=== PATIENT | male | born 1960 | race Caucasian/White ===

== ENCOUNTER 2018-03-13 10:33 | Observation (INO) | payer BC ==
[~2018-03-13] VITALS: Ht 172.7 cm; Wt 92.3 kg
[~2018-03-13 10:33] MED LIST changes: -ACET325 PO; -ASPI81CH PO; -ATOR40TA PO; -LISI20 PO; -LISI5 PO; -METO25 PO; -NITR.4SL SL; -OMEPRAZOLE MAGN20 MG PO
[2018-03-13] MEDS ORDERED: LISI20 PO (11:23)
[2018-03-15] MEDS ORDERED: LISI5 PO (13:55)
[2018-03-15] MEDS ORDERED: NITR.4SL SL (13:56)
[2018-03-15] MEDS ORDERED: ACET325 PO (13:58)
[2018-03-15] MEDS ORDERED: ASPI81CH PO (13:58)
[2018-03-15] MEDS ORDERED: ATOR40TA PO (14:02)
[2018-03-15] MEDS ORDERED: METO25 PO (14:02)
[2018-03-15] MEDS ORDERED: OMEPRAZOLE MAGN20 MG PO (14:04)
== END 2018-03-15 15:59 | disposition home or self-care (01) ==
LOC: ER 10:33 → MEDS 10:34 → ENPENDDIS 03-15 13:19 → MEDS 03-15 15:59
DX: R07.9 Chest pain, unspecified (principal); I10 Essential (primary) hypertension; E78.5 Hyperlipidemia, unspecified; R94.39 Abnormal result of other cardiovascular function study; F17.210 Nicotine dependence, cigarettes, uncomplicated
CPT/HCPCS: 36415; 78452; 84484; 93005; 93010; 93017; 94664; 94760; 98960; 99285-25; 99407; A9500; G0378; J2785

== ENCOUNTER → 2018-03-13 | Outpatient (CLI) | payer BC ==
[~2018-03-13] MED LIST: ACET325 PO; ASPI81CH PO; ATOR40TA PO; IBUHYD PO; LISI20 PO; LISI5 PO; METO25 PO; NITR.4SL SL; OMEPRAZOLE MAGN20 MG PO; PENVK500 PO
[2018-03-13 08:59] LABS: BASOPHILS ABSOLUTE AUTO 0.03 K/mm3 (0.00-0.23); BASOPHILS PERCENT AUTO 0 % (0-2); EOSINOPHILS PERCENT AUTO 1 % (0-6); Hematocrit 42.7 % (37.0-53.0); Hemoglobin 15.1 g/dL (13.5-17.5); IMMATURE GRAN ABSOLUTE AUTO 0.05 K/mm3 (0.00-0.10); IMMATURE GRAN PERCENT AUTO 1 % (0-1); LYMPHOCYTES ABSOLUTE AUTO 1.91 K/mm3 (0.84-5.20); LYMPHOCYTES PERCENT AUTO 19 % (21-46); MONOCYTES ABSOLUTE AUTO 0.76 K/mm3 (0.16-1.47); MONOCYTES PERCENT AUTO 8 % (4-13); Mean Corpuscular HGB 33.3 pg (26.0-34.0); Mean Corpuscular HGB Conc 35.4 g/dL (31.5-36.5); Mean Corpuscular Volume 94 fL (80-100); Mean Platelet Volume 9.5 fL (9.1-12.4); NEUTROPHILS ABSOLUTE AUTO 7.21 K/mm3 (1.96-9.15); NEUTROPHILS PERCENT AUTO 72 % (41-73); Platelet Count 196 K/mm3 (150-400); RDW Standard Deviation 41.5 fL (35.1-46.3); Red Blood Cell Count 4.53 M/mm3 (4.30-5.90); White Blood Cell Count 10.06 K/mm3 (4.00-11.30)
[2018-03-13 09:10] LABS: Anion Gap 8 mmol/L (6-16); Blood Urea Nitrogen 11 mg/dL (8-24); Bun/Creatinine Ratio 11.8 (12.0-20.0); CO2, Blood 25 mmol/L (21-32); Chloride, Blood 104 mmol/L (98-108); Creatinine, Blood 0.93 mg/dL (0.60-1.20); Glomerular Filtration Rate >60 (60-); Glucose, Blood 95 mg/dL (70-99); Potassium, Blood 4.4 mmol/L (3.5-5.5); Sodium, Blood 137 mmol/L (136-145); Troponin I 0.029 ng/mL (0.000-0.040)
== END ==
LOC: LAB EV 08:52 → LAB SHORT 08:52
PROVIDERS: Physician Assistant Surgical
DX: R07.9 Chest pain, unspecified (principal)
CPT/HCPCS: 80048; 84484; 85025

== ENCOUNTER 2019-02-03 08:58 | Emergency (ER) | payer OTHER, SELFPAY ==
[~2019-02-03] VITALS: Ht 172.7 cm; Wt 81.7 kg
[~2019-02-03 08:58] MED LIST changes: +ACET325 PO; +ASPI81CH PO; +ATOR40TA PO; +LISI20 PO; +LISI5 PO; +METO25 PO; +NITR.4SL SL; +OMEPRAZOLE MAGN20 MG PO; +VARE1
[2019-02-03 10:17] LABS: BASOPHILS ABSOLUTE AUTO 0.02 K/mm3 (0.00-0.23); BASOPHILS PERCENT AUTO 0 % (0-2); EOSINOPHILS ABSOLUTE AUTO 0.07 K/mm3 (0.00-0.68); EOSINOPHILS PERCENT AUTO 1 % (0-6); Hematocrit 47.2 % (37.0-53.0); Hemoglobin 16.2 g/dL (13.5-17.5); IMMATURE GRAN ABSOLUTE AUTO 0.04 K/mm3 (0.00-0.10); IMMATURE GRAN PERCENT AUTO 1 % (0-1); LYMPHOCYTES ABSOLUTE AUTO 1.75 K/mm3 (0.84-5.20); LYMPHOCYTES PERCENT AUTO 21 % (21-46); MONOCYTES ABSOLUTE AUTO 0.72 K/mm3 (0.16-1.47); MONOCYTES PERCENT AUTO 9 % (4-13); Mean Corpuscular HGB 34.1 pg (26.0-34.0); Mean Corpuscular HGB Conc 34.3 g/dL (31.5-36.5); Mean Corpuscular Volume 99 fL (80-100); Mean Platelet Volume 9.2 fL (9.1-12.4); NEUTROPHILS ABSOLUTE AUTO 5.76 K/mm3 (1.96-9.15); NEUTROPHILS PERCENT AUTO 69 % (41-73); Platelet Count 154 K/mm3 (150-400); RDW Standard Deviation 44.4 fL (35.1-46.3); Red Blood Cell Count 4.75 M/mm3 (4.30-5.90); White Blood Cell Count 8.36 K/mm3 (4.00-11.30)
[2019-02-03 10:42] LABS: Alanine Aminotransfer (ALT/SGP 66 U/L (12-78); Albumin, Blood 3.5 g/dL (3.4-5.0); Albumin/Globulin Ratio 0.8 (0.8-1.8); Alk Phos 106 U/L (50-136); Anion Gap 7 mmol/L (6-16); Aspartate Aminotrans (AST/SGOT 60 U/L (12-37); Bilirubin, Total 0.6 mg/dL (0.1-1.0); Blood Urea Nitrogen 11 mg/dL (8-24); Bun/Creatinine Ratio 15.8 (12.0-20.0); CO2, Blood 26 mmol/L (21-32); Calcium, Blood 8.6 mg/dL (8.5-10.1); Chloride, Blood 108 mmol/L (98-108); Globulin, Blood 4.4 g/dL (2.2-4.0); Glomerular Filtration Rate >60 (60-); Glucose, Blood 88 mg/dL (70-99); Sodium, Blood 141 mmol/L (136-145); Total Protein, Blood 7.9 g/dL (6.4-8.2); Troponin I <0.015 ng/mL (0.000-0.040)
[2019-03-06] MEDS ORDERED: METO25ER PO (14:15)
[2019-03-06] MEDS ORDERED: PANT40 PO (14:17)
== END 2019-02-03 11:00 | disposition home or self-care (01) ==
LOC: ER 08:58
PROVIDERS: Physician Assistant
DX: R07.89 Other chest pain (principal); Z79.899 Other long term (current) drug therapy; Z79.82 Long term (current) use of aspirin; I10 Essential (primary) hypertension; E78.5 Hyperlipidemia, unspecified; F17.200 Nicotine dependence, unspecified, uncomplicated
CPT/HCPCS: 36415; 71046; 80053; 83690; 84484; 85025; 93005; 93010; 99285-25

== ENCOUNTER 2019-03-07 08:17 | Day surgery (SDC) | payer OTHER ==
[~2019-03-07] VITALS: Ht 172.7 cm; Wt 85.9 kg
[~2019-03-07 08:17] MED LIST changes: +METO25ER PO; +PANT40 PO
--- NOTE | 2019-03-07 12:13 | NUR ---
DISCHARGE PT. DISCHARGE INSTRUCTIONS REVIEWED. PT. VSS AT THIS TIME. STEADY ON FEET TO GET SELF DRESSED. PT CALLED FAMILY MEMBER FOR RIDE HOME. RADIAL SITE CARE REVIEWED, NO FURTHER QUESTIONS FROM PT. PT. DENIES ANY PAIN OR DISCOMFORT AT THIS TIME. CLOTH DOT PLACED OVER SITE. ACCESS SITE WNL, NO BRUISING, BLEEDING, SWELLING NOTED. PT. LEAVING WITH ARMBOARD IN PLACE. IV REMVOED; CATHETER INTACT.
== END 2019-03-07 12:30 | disposition home or self-care (01) ==
LOC: MHTC 08:17
DX: R07.89 Other chest pain (principal); I10 Essential (primary) hypertension; J44.9 Chronic obstructive pulmonary disease, unspecified; F17.210 Nicotine dependence, cigarettes, uncomplicated; E78.5 Hyperlipidemia, unspecified; Z79.899 Other long term (current) drug therapy; Z79.82 Long term (current) use of aspirin
CPT/HCPCS: 93454; 93458; 99152; C1769; C1894; J0690; J1644; J2250; J3010; J7030; Q9967

== ENCOUNTER → 2019-06-18 | Outpatient (CLI) | payer OTHER ==
[2019-06-18 09:31] LABS: BASOPHILS ABSOLUTE AUTO 0.03 K/mm3 (0.00-0.23); BASOPHILS PERCENT AUTO 0 % (0-2); EOSINOPHILS ABSOLUTE AUTO 0.05 K/mm3 (0.00-0.68); EOSINOPHILS PERCENT AUTO 0 % (0-6); Hematocrit 42.8 % (37.0-53.0); Hemoglobin 15.2 g/dL (13.5-17.5); IMMATURE GRAN ABSOLUTE AUTO 0.05 K/mm3 (0.00-0.10); IMMATURE GRAN PERCENT AUTO 0 % (0-1); LYMPHOCYTES PERCENT AUTO 13 % (21-46); MONOCYTES ABSOLUTE AUTO 0.87 K/mm3 (0.16-1.47); MONOCYTES PERCENT AUTO 7 % (4-13); Mean Corpuscular HGB 34.6 pg (26.0-34.0); Mean Corpuscular HGB Conc 35.5 g/dL (31.5-36.5); Mean Corpuscular Volume 98 fL (80-100); Mean Platelet Volume 10.1 fL (9.1-12.4); NEUTROPHILS ABSOLUTE AUTO 9.27 K/mm3 (1.96-9.15); NEUTROPHILS PERCENT AUTO 79 % (41-73); Platelet Count 145 K/mm3 (150-400); RDW Coefficient Variation 11.9 % (11.7-14.2); RDW Standard Deviation 42.7 fL (35.1-46.3); Red Blood Cell Count 4.39 M/mm3 (4.30-5.90); White Blood Cell Count 11.77 K/mm3 (4.00-11.30)
[2019-06-18 09:38] LABS: Anion Gap 8 mmol/L (6-16); Blood Urea Nitrogen 11 mg/dL (8-24); Bun/Creatinine Ratio 11.7 (12.0-20.0); Calcium, Blood 8.4 mg/dL (8.5-10.1); Chloride, Blood 103 mmol/L (98-108); Creatinine, Blood 0.94 mg/dL (0.60-1.20); Glomerular Filtration Rate >60 (60-); Glucose, Blood 109 mg/dL (70-99); Sodium, Blood 137 mmol/L (136-145)
[2019-06-18 10:05] LABS: CO2, Blood 26 mmol/L (21-32)
== END | disposition home or self-care (01) ==
LOC: LAB SHORT 09:14 → LAB EV 09:14
PROVIDERS: Physician Assistant Surgical
DX: R53.83 Other fatigue (principal)
CPT/HCPCS: 80048; 83690; 85025

== ENCOUNTER → 2019-12-23 | Outpatient (CLI) | payer OTHER ==
[2019-12-23 10:08] LABS: BASOPHILS ABSOLUTE AUTO 0.02 K/mm3 (0.00-0.23); BASOPHILS PERCENT AUTO 0 % (0-2); EOSINOPHILS ABSOLUTE AUTO 0.06 K/mm3 (0.00-0.68); EOSINOPHILS PERCENT AUTO 1 % (0-6); Hematocrit 47.1 % (37.0-53.0); IMMATURE GRAN ABSOLUTE AUTO 0.04 K/mm3 (0.00-0.10); IMMATURE GRAN PERCENT AUTO 0 % (0-1); LYMPHOCYTES ABSOLUTE AUTO 1.91 K/mm3 (0.84-5.20); LYMPHOCYTES PERCENT AUTO 19 % (21-46); MONOCYTES ABSOLUTE AUTO 0.86 K/mm3 (0.16-1.47); MONOCYTES PERCENT AUTO 8 % (4-13); Mean Corpuscular HGB 34.9 pg (26.0-34.0); Mean Corpuscular HGB Conc 36.1 g/dL (31.5-36.5); Mean Corpuscular Volume 97 fL (80-100); Mean Platelet Volume 10.2 fL (9.1-12.4); NEUTROPHILS ABSOLUTE AUTO 7.35 K/mm3 (1.96-9.15); NEUTROPHILS PERCENT AUTO 72 % (41-73); Platelet Count 174 K/mm3 (150-400); RDW Coefficient Variation 12.6 % (11.7-14.2); RDW Standard Deviation 45.4 fL (35.1-46.3); Red Blood Cell Count 4.87 M/mm3 (4.30-5.90); White Blood Cell Count 10.24 K/mm3 (4.00-11.30)
[2019-12-23 10:20] LABS: Alanine Aminotransfer (ALT/SGP 99 U/L (12-78); Albumin, Blood 3.5 g/dL (3.4-5.0); Albumin/Globulin Ratio 0.7 (0.8-1.8); Alk Phos 120 U/L (40-126); Anion Gap 6 mmol/L (6-16); Aspartate Aminotrans (AST/SGOT 92 U/L (12-37); Bilirubin, Total 0.9 mg/dL (0.1-1.0); Blood Urea Nitrogen 16 mg/dL (8-24); CO2, Blood 30 mmol/L (21-32); Calcium, Blood 8.4 mg/dL (8.5-10.1); Chloride, Blood 103 mmol/L (98-108); Creatinine, Blood 1.07 mg/dL (0.60-1.20); Globulin, Blood 4.8 g/dL (2.2-4.0); Glomerular Filtration Rate >60 (60-); Glucose, Blood 113 mg/dL (70-99); Potassium, Blood 4.3 mmol/L (3.5-5.5); Sodium, Blood 139 mmol/L (136-145); Total Protein, Blood 8.3 g/dL (6.4-8.2)
[2019-12-23 10:21] LABS: Troponin I <0.017 ng/mL (0.000-0.040)
== END ==
LOC: LAB SHORT 10:02 → LAB EV 10:02
PROVIDERS: Physician Assistant
DX: R07.9 Chest pain, unspecified (principal)
CPT/HCPCS: 80053; 83690; 84484; 85025; 85379

== ENCOUNTER 2020-12-15 13:20 | Observation (INO) | payer OTHER ==
[~2020-12-15] VITALS: Ht 172.7 cm; Wt 84.6 kg
--- NOTE | 2020-12-16 05:17 | NUR ---
SHIFT SUMMARY A/O, ABLE TO MAKE NEEDS KNOWN. COOPERATIVE WITH CARE. CALLS AND ANSWERS QUESTIONS APPROPRIATELY. NO C/O PAIN/DISCOMFORT. APPEARED TO REST MUCH OF THE NIGHT. TELE RUNNING SR IN 60s. HYPERTENSIVE THIS AM; APPEARS TO BE ON TREND WITH PREVIOUS PRESSURES. ALL OTHER VS WNL. NO ACUTE CHANGES NOTED. INDEPENDENT IN ROOM. BED IN LOWEST POSITION. CALL LIGHT AND BELONGINGS WITHIN REACH. CONTINUE WITH CURRENT PLAN OF CARE. REPORT TO ONCOMING RN.
[2020-12-16 06:12] LABS: CHOL/HDL RATIO 2.7; Cholesterol 180 mg/dL (50-200); HDL Cholesterol 66 mg/dL (>39); LDL/HDL RATIO 1.5; Low Density Lipoprotein Chol 98 mg/dL (0-110); Triglycerides 78 mg/dL (30-160); Troponin I <0.015 ng/mL (0.000-0.040); Very Low Density Lipoprot Chol 15 mg/dL (6-32)
[2020-12-16] MEDS ORDERED: ACET325 PO (11:23)
[2020-12-16] MEDS ORDERED: ALUM-MAG HYDROX30 ML PO (11:25)
[2020-12-16] MEDS ORDERED: TUMS500 MG PO (11:26)
[2020-12-16] MEDS ORDERED: Nicoderm Cq1 EAC1 TOP (11:26)
--- NOTE | 2020-12-16 12:39 | NUR ---
DISCHARGE SUMMARY PT A/O X4; PLEASANT AND COOPERATIVE WITH CARE. IND. IN THE ROOM. C/O EPIGASTRIC PAIN THIS AM THAT WAS RELIEVED BY GI COCKTAIL. NO OTHER COMPLAINTS. PT INSTRUCTED TO FOLLOW UP WITH [facility] IN ONE WEEK. EDUCATION PROVIDED TO PATIENT AND HE EXHIBITED UNDERSTANDING. IV DC'D WNL. DISCHARGED HOME.
--- NOTE | 2020-12-16 17:09 | NUR ---
ADMIT: 12/15/20 DISCHARGE: 12/15/20 DX: ACS, CP CC: [email or web address] AAKASH CALL: pt d/c prior to being able to meet with him (Per d/c note f/u with pcp 1 week) RESIDENCE: home with spouse CAREGIVER: Estela Luciano , Spouse / Partner, DX: continuouse chronic alcoholism, HTN, abdominal pain, DME: none CCM: none HOME HEALTH: none SUMMARY: Admit: 12/15/20 12/16/20-per chart review with Dr. Velez, pt is stable to be d/c home and follow up with PCP 1 week. -jerad
== END 2020-12-16 12:26 | disposition home or self-care (01) ==
LOC: ER 13:20 → ERHOLD 13:21 → MEDS 18:05 → ENPENDDIS 12-16 11:06 → MEDS 12-16 12:26
PROVIDERS: ADMIT Family Medicine
DX: R79.89 Other specified abnormal findings of blood chemistry (principal); R10.13 Epigastric pain; R07.9 Chest pain, unspecified; I10 Essential (primary) hypertension; E78.5 Hyperlipidemia, unspecified; F17.210 Nicotine dependence, cigarettes, uncomplicated; J44.9 Chronic obstructive pulmonary disease, unspecified
CPT/HCPCS: 36415; 80061; 83036; 84484; 93005; 93010; 99285-25; A9270; G0378

== ENCOUNTER → 2022-10-09 | Outpatient (CLI) | payer OTHER ==
[~2022-10-09] MED LIST changes: +ALUM-MAG HYDROX30 ML PO; +Nicoderm Cq1 EAC1 TOP; +TUMS500 MG PO
[2022-10-13 07:11] LABS: HCV LOG10 6.838 (.); HEPATITIS C QUANTITATION 6880000 IU/mL (.)
== END | disposition home or self-care (01) ==
LOC: LAB 17:11 → LAB SHORT 17:11
PROVIDERS: Physician Assistant Medical
DX: B18.2 Chronic viral hepatitis C (principal)
CPT/HCPCS: 36415

== ENCOUNTER 2023-04-08 21:06 | Emergency (ER) | payer OTHER ==
[~2023-04-08] VITALS: Ht 175.3 cm; Wt 93.0 kg
[2023-04-08] MEDS ORDERED: AMLODIPINE BESY10 MG PO (21:14)
[2023-04-08 21:39] LABS: BASOPHILS ABSOLUTE AUTO 0.03 K/mm3 (0.00-0.23); BASOPHILS PERCENT AUTO 0 % (0-2); EOSINOPHILS ABSOLUTE AUTO 0.17 K/mm3 (0.00-0.68); EOSINOPHILS PERCENT AUTO 2 % (0-6); Hematocrit 41.3 % (37.0-53.0); Hemoglobin 15.2 g/dL (13.5-17.5); IMMATURE GRAN ABSOLUTE AUTO 0.05 K/mm3 (0.00-0.10); IMMATURE GRAN PERCENT AUTO 1 % (0-1); LYMPHOCYTES ABSOLUTE AUTO 3.61 K/mm3 (0.84-5.20); LYMPHOCYTES PERCENT AUTO 44 % (21-46); MONOCYTES PERCENT AUTO 9 % (4-13); Mean Corpuscular HGB 34.2 pg (26.0-34.0); Mean Corpuscular HGB Conc 36.8 g/dL (31.5-36.5); Mean Corpuscular Volume 93 fL (80-100); Mean Platelet Volume 9.5 fL (9.1-12.4); NEUTROPHILS ABSOLUTE AUTO 3.68 K/mm3 (1.96-9.15); NEUTROPHILS PERCENT AUTO 45 % (41-73); Platelet Count 168 K/mm3 (150-400); RDW Coefficient Variation 13.5 % (11.7-14.2); RDW Standard Deviation 46.2 fL (35.1-46.3); Red Blood Cell Count 4.45 M/mm3 (4.30-5.90); White Blood Cell Count 8.24 K/mm3 (4.00-11.30)
[2023-04-08 21:45] VITALS: BP 126/78
[2023-04-08 21:57] LABS: Albumin, Blood 3.4 g/dL (3.4-5.0); Albumin/Globulin Ratio 0.8 (0.8-1.8); Bilirubin, Total 0.5 mg/dL (0.1-1.0); Bun/Creatinine Ratio 14.4 (12.0-20.0); Calcium, Blood 8.9 mg/dL (8.5-10.1); Creatinine, Blood 0.84 mg/dL (0.60-1.20); Globulin, Blood 4.3 g/dL (2.2-4.0); Potassium, Blood 3.9 mmol/L (3.5-5.5); Total Protein, Blood 7.7 g/dL (6.4-8.2)
[2023-04-09] MEDS ORDERED: ALPR1 PO (00:01)
[2023-04-12] MEDS ORDERED: Xanax1 MG PO (14:06)
== END 2023-04-09 00:23 | disposition home or self-care (01) ==
LOC: ER 21:06
PROVIDERS: Physician Assistant
DX: F41.9 Anxiety disorder, unspecified (principal); R60.0 Localized edema; Z79.899 Other long term (current) drug therapy; I10 Essential (primary) hypertension; E78.5 Hyperlipidemia, unspecified; F17.200 Nicotine dependence, unspecified, uncomplicated
CPT/HCPCS: 71046; 80053; 83880; 84484; 85025; 93005; 93010; 99285-25

== ENCOUNTER 2023-07-20 23:17 | Emergency (ER) | payer OTHER ==
[~2023-07-20] VITALS: Ht 175.3 cm; Wt 113.4 kg
[~2023-07-20 23:17] MED LIST changes: +ALPR1 PO; +AMLODIPINE BESY10 MG PO; +Xanax1 MG PO
[2023-07-20] MEDS ORDERED: BUPROPION HCL200 M1 PO (23:51)
[2023-07-21 07:00] VITALS: BP 112/76
== END 2023-07-21 07:15 | disposition home or self-care (01) ==
LOC: ER 23:17
DX: S14.3XXA Injury of brachial plexus, initial encounter (principal); S40.011A Contusion of right shoulder, initial encounter; E86.0 Dehydration; G54.0 Brachial plexus disorders; W18.30XA Fall on same level, unspecified, initial encounter; Z79.899 Other long term (current) drug therapy; F17.200 Nicotine dependence, unspecified, uncomplicated
CPT/HCPCS: 29105; 73030; 73200; 93005; 93010; 96374-59; 96375-59; 99284-25; J2060; J2405; J7030

== ENCOUNTER → 2025-07-07 | Outpatient (CLI) | payer OTHER ==
[~2025-07-07] MED LIST changes: +BUPROPION HCL200 M1 PO
[2025-07-07 08:40] LABS: BASOPHILS ABSOLUTE AUTO 0.02 K/mm3 (0.00-0.23); BASOPHILS PERCENT AUTO 0 % (0-2); EOSINOPHILS ABSOLUTE AUTO 0.17 K/mm3 (0.00-0.68); EOSINOPHILS PERCENT AUTO 1 % (0-6); Hematocrit 37.6 % (37.0-53.0); Hemoglobin 13.2 g/dL (13.5-17.5); IMMATURE GRAN ABSOLUTE AUTO 0.09 K/mm3 (0.00-0.10); IMMATURE GRAN PERCENT AUTO 1 % (0-1); LYMPHOCYTES ABSOLUTE AUTO 1.98 K/mm3 (0.84-5.20); LYMPHOCYTES PERCENT AUTO 12 % (21-46); MONOCYTES ABSOLUTE AUTO 1.27 K/mm3 (0.16-1.47); MONOCYTES PERCENT AUTO 8 % (4-13); Mean Corpuscular HGB Conc 35.1 g/dL (31.5-36.5); Mean Corpuscular Volume 96 fL (80-100); NEUTROPHILS ABSOLUTE AUTO 12.61 K/mm3 (1.96-9.15); NEUTROPHILS PERCENT AUTO 78 % (41-73); NRBC ABSOLUTE 0.00 K/mm3 (0.00-0.02); NRBC Auto 0.0 /100 WBC (0.0-0.2); Platelet Count 196 K/mm3 (150-400); RDW Coefficient Variation 11.7 % (11.7-14.2); RDW Standard Deviation 41.0 fL (35.1-46.3)
[2025-07-07 08:53] LABS: Alanine Aminotransfer (ALT/SGP 32.0 U/L (12-78); Albumin, Blood 3.6 g/dL (3.4-5.0); Albumin/Globulin Ratio 0.8 (0.8-1.8); Anion Gap 12.0 mmol/L (3-11); Aspartate Aminotrans (AST/SGOT 19.0 U/L (12-37); Bilirubin, Total 0.7 mg/dL (0.1-1.0); Blood Urea Nitrogen 9.0 mg/dL (8-24); CO2, Blood 26.0 mmol/L (21-32); Calcium, Blood 9.1 mg/dL (8.5-10.1); Chloride, Blood 102.0 mmol/L (98-108); Creatinine, Blood 0.88 mg/dL (0.60-1.20); Globulin, Blood 4.3 g/dL (2.2-4.0); Glucose, Blood 106.0 mg/dL (70-99); Potassium, Blood 3.6 mmol/L (3.5-5.5); Sodium, Blood 136.0 mmol/L (136-145); Total Protein, Blood 7.9 g/dL (6.4-8.2); Uric Acid, Blood 7.7 mg/dL (3.5-7.2)
== END ==
LOC: LAB 08:36 → LAB SHORT 08:36
DX: M25.422 Effusion, left elbow (principal)
CPT/HCPCS: 80053; 84550; 85025

== ENCOUNTER → 2025-07-30 | Outpatient (CLI) | payer MEDICARE, OTHER ==
[2025-08-01 08:25] LABS: COTININE, URN, SCREEN Negative
== END ==
LOC: LAB SHORT 11:13 → LAB 11:13
PROVIDERS: Orthopaedic Surgery
DX: Z87.891 Personal history of nicotine dependence (principal)